=== PATIENT | male | born 2000 | race African-American/Black ===

== ENCOUNTER 2022-05-30 03:23 | Emergency (ER) | payer SELFPAY | END 2022-05-30 04:46 | disposition home or self-care (01) | LOC: CSHERS 03:23 | DX: S51.832A Puncture wound without foreign body of left forearm, initial encounter (principal); W26.8XXA Contact with other sharp object(s), not elsewhere classified, initial encounter; Y99.0 Civilian activity done for income or pay | CPT/HCPCS: 99283 ==